=== PATIENT | male | born 1985 | race Caucasian/White ===

== ENCOUNTER 2017-02-09 14:21 | Emergency (ER) | payer OTHER ==
[2017-02-09 14:30] VITALS: BP 110/68
[2017-02-09] MEDS ORDERED: DIPH/PERTUSS(ACELL)/TETANUS VAC/PF 0.5 ML SYR (>=10YO) IM ONE (15:55)
--- NOTE | 2017-02-09 15:59 | ER Document Report ---
HPI - HPI Pain Level: 5 Notes: Patient is a 31-year-old male presents to the ED complaining of right thumb pain status post dog bite prior to arrival. Patient states that he was trying to break up an altercation between 2 dogs when he got bit. Patient states that he owns one dog and the other dog is a rescue that they have. He reports shots are both up-to-date and they have been acting normally otherwise. Pt states that he is still able to move his thumb, but does have increased pain and LROM to flexion of the IP joint. He has not had anything for his discomfort. Pain does not radiate. Patient reports an allergy to sulfa antibiotics. He denies any daily medications or other significant past medical history otherwise. His PCM is at the [facility]. Patient admits to smoking but declines any miscellaneous or illicit drug use. Patient states that his last tetanus was in 2010 or 2011. Denies any recent illness, travel, sick contacts. Denies any fever, headache, chest pain, palpitations, syncope, cough, wheeze, shortness of breath, abdominal pain, nausea/joint/diarrhea, dysuria, muscle paralysis/ weakness, numbness/tingling. - ROS Notes: REVIEW OF SYSTEMS: CONSTITUTIONAL : Denies fever, chills, or sweats. Denies recent illness. EENT: Denies eye, ear, throat, or mouth pain or symptoms. Denies nasal or sinus congestion or discharge. Denies throat, tongue, or mouth swelling or difficulty swallowing. CARDIOVASCULAR: Denies chest pain. Denies palpitations or racing or irregular heart beat. Denies ankle edema. RESPIRATORY: Denies cough, cold, or chest congestion. Denies shortness of breath, difficulty breathing, or wheezing. GASTROINTESTINAL: Denies abdominal pain or distention. Denies nausea, vomiting , or diarrhea. Denies blood in vomitus, stools, or per rectum. Denies black, tarry stools. Denies constipation. GENITOURINARY: Denies difficulty urinating, painful urination, burning, frequency, blood in urine, or discharge. MUSCULOSKELETAL: see hpi SKIN: see hpi NEUROLOGICAL: Denies confusion or altered mental status. Denies passing out or loss of consciousness. Denies dizziness or lightheadedness. Denies headache. Denies weakness or paralysis or loss of use of either side. Denies problems with gait or speech. Denies sensory loss, numbness, or tingling. ALL OTHER SYSTEMS REVIEWED AND NEGATIVE. Dictation was performed using [employer] voice recognition software - DERM Skin Color: Normal Past Medical History - Social History Smoking Status: Current Every Day Smoker Family History: Reviewed & Not Pertinent Patient has suicidal ideation: No Patient has homicidal ideation: No Renal/ Medical History: Denies: Hx Peritoneal Dialysis Vertical Provider Document - CONSTITUTIONAL Agree With Documented VS: Yes Notes: PHYSICAL EXAMINATION: GENERAL: Well-appearing, well-nourished and in no acute distress. LUNGS: Breath sounds clear to auscultation bilaterally and equal. No wheezes rales or rhonchi. HEART: Regular rate and rhythm without murmurs, rubs, gallops. Musculoskeletal: Right hand/wrist: FROM to passive/active. Strength 5+/5. Rt thumb: + mild erythema, 2 puncture sites noted. + nail fractured, but remains intact with the nail bed. LROM to passive/active due to swelling/pain. + tenderness. No tendon compromise. N/V intact distal. Extremities: No cyanosis, clubbing, or edema b/l. Peripheral pulses 2+. Capillary refill less than 3 seconds. NEUROLOGICAL: Normal sensory, motor exams PSYCH: Normal mood, normal affect. SKIN: Warm, Dry, normal turgor, no rashes or lesions noted.---See MSk exam. - INFECTION CONTROL TRAVEL OUTSIDE OF THE [place] IN LAST 30 DAYS: No - RESPIRATORY O2 Sat by Pulse Oximetry: 97 Course - Re-evaluation Re-evalutation: 02/09/17 15:57 Patient is afebrile, well-hydrated, 31-year-old male presents the ED with right thumb pain/injury status post dog bite. Vitals are stable. PE otherwise unremarkable for any focal neurological deficits. X-ray was unremarkable for any acute pathology. Wound was thoroughly irrigated and cleansed using saline and Shur-Clens. Sterile dressing applied. Tdap given today. I will send him home with Augmentin twice a day for 7 days as prophylactic. Conservative measures otherwise for symptoms. Recheck with your PCM in 2-3 days. Return to ED with any worsening/concerning symptoms otherwise reviewed discharge. Patient is in agreement. - Vital Signs Vital signs: Temp Pulse Resp BP Pulse Ox 97.8 F 65 15 110/68 97 02/09/17 14:28 07/18/17 14:28 02/09/17 14:28 02/09/17 14:28 02/09/17 14:28 Discharge - Discharge Clinical Impression: Thumb pain Qualifiers: Laterality: right Qualified Code(s): M79.644 - Pain in right finger(s) Dog bite Qualifiers: Encounter type: initial encounter Qualified Code(s): W54.0XXA - Bitten by dog, initial encounter Condition: Stable Disposition: HOME, SELF-CARE Instructions: Animal Bites ([facility]) Additional Instructions: Rest, Ice, Compression, Elevation Tylenol/ibuprofen as needed Light stretches daily Strength exercises as able Moist heat and massage may help Monitor the animals closely and watch for any abnormal behavior or signs of infection as this could be related to rabies. Seek medical attention if so. F/u with your PCP in 2-3 days for a recheck Consider consult(s) with Orthopedics for ongoing/worsening symptoms Return to the ED with any worsening symptoms and/or development of fever, headache, chest pain, palpitations, syncope, shortness of breath, trouble breathing, abdominal pain, n/v/d, muscle weakness/paralysis, numbness/tingling, or other worsening symptoms that are concerning to you. Prescriptions: Amox Tr/Potassium Clavulanate [Augmentin 875-125 Tablet] 1 tab PO BID #14 tablet Forms: Smoking Cessation Education Referrals: [facility] [Provider Group] - Follow up in 3-5 days
--- NOTE | 2017-02-09 16:26 | RADIOLOGY REPORT (SQ) ---
EXAM DESCRIPTION: FINGER RIGHT COMPLETED DATE/TIME: 02/09/2017 4:05 pm REASON FOR STUDY: right thumb pain s/p dog bite COMPARISON: None. NUMBER OF VIEWS: Three views. TECHNIQUE: AP, lateral, and oblique images acquired of the right thumb. LIMITATIONS: None. FINDINGS: MINERALIZATION: Normal. BONES: No acute fracture or dislocation. No bony puncture wound is identified. No worrisome bone le sions. SOFT TISSUES: No soft tissue swelling. No foreign body. OTHER: No other significant finding. IMPRESSION: History of dog bite to the thumb. No bony puncture wound is identified. COMMENT: SITE OF TRAUMA/COMPLAINT MARKED/STAMP COMPLETED: YES. TECHNICAL DOCUMENTATION: JOB ID: [id number] [employer]- All Rights Reserved
== END 2017-02-09 17:01 | disposition home or self-care (01) ==
LOC: ER 14:21
DX: S61.151A Open bite of right thumb with damage to nail, initial encounter (principal); W54.0XXA Bitten by dog, initial encounter; Y93.K9 Activity, other involving animal care; Y92.009 Unspecified place in unspecified non-institutional (private) residence as the place of occurrence of the external cause; Z23 Encounter for immunization; Z88.2 Allergy status to sulfonamides; F17.200 Nicotine dependence, unspecified, uncomplicated
CPT/HCPCS: 90471; 90715; 99283